=== PATIENT | male | born 1960 | race Caucasian/White ===

== ENCOUNTER 2016-12-07 16:34 | Inpatient (IN) | payer SELFPAY ==
--- NOTE | 2016-12-07 16:36 | EDPHY ---
H & P Time Seen by Provider: 12/07/16 16:35 HPI/ROS: CHIEF COMPLAINT: Chest pain HISTORY OF PRESENT ILLNESS: The patient is referred to the emergency department for evaluation of chest pain. The patient was seen at urgent care and sent here by private vehicle. The patient reports his pain began at 2 o' clock this afternoon while working with a weed whacker. The patient has no prior history of the symptoms. The patient denies significant past medical history. He does not smoke. There is no family history of heart disease. The patient does report he is active without history of exertional chest pain or shortness of breath. The patient currently rates his pain as an 8/10. REVIEW OF SYSTEMS: A comprehensive 10 point review of systems is otherwise negative aside from elements mentioned in the history of present illness. Source: Patient Exam Limitations: No limitations - Medical/Surgical History Hx Asthma: No Hx Chronic Respiratory Disease: No Hx Diabetes: No Hx Cardiac Disease: No Hx Renal Disease: No Hx Cirrhosis: No Hx Alcoholism: No Hx HIV/AIDS: No Hx Splenectomy or Spleen Trauma: No Other PMH: musculoskeletal trauma from mountain biking,hernia. hypothyroid - Social History Smoking Status: Never smoked - Physical Exam Exam: General Appearance: Pallorous, ill-appearing, diaphoretic Eyes: Pupils equal and round no pallor or injection ENT, Mouth: Mucous membranes moist Respiratory: There are no retractions, lungs are clear to auscultation Cardiovascular: Bradycardic Gastrointestinal: Abdomen is soft and nontender, no masses, bowel sounds normal Neurological: A&O, normal motor function, normal sensory exam, normal cranial nerves Skin: Warm and dry, no rashes Musculoskeletal: Neck is supple nontender Extremities: symmetrical, full range of motion Constitutional: Initial Vital Signs Temperature (C) 36.7 C 12/07/16 16:36 Heart Rate 51 L 12/07/16 16:36 Respiratory Rate 18 12/07/16 16:36 Blood Pressure 92/69 L 12/07/16 16:36 O2 Sat (%) 98 12/07/16 16:36 O2 Delivery Mode Nasal Cannula O2 (L/minute) 4 Allergies/Adverse Reactions: erythromycin base Allergy (Intermediate, Verified 12/07/16 19:24) Vomiting Home Medications: Medication Instructions Recorded Levothyroxine [Synthroid 112 mcg 112 mcg PO DAILY06 08/06/14 (*)] Medical Decision Making - Diagnostics EKG Interpretation: EKG: Complete interpretation has been separately recorded in the [facility] archive. Summary impression: Acute inferior myocardial infarction, ST segment elevation noted in the inferior leads with reciprocal changes in the anterior leads. ED Course/Re-evaluation: The patient presented to triage at 4:36 p.m.. He was brought back to room placed on a cardiac catheterization technician were tombstones were noted. A cardiac alert called that 4:41pm. The patient's initial EKG demonstrates an inferior myocardial infarction. The patient was noted to be bradycardic. He received 325 mg of aspirin. The patient received 1 mg of atropine for hypotension with a blood pressure of 70/50. The patient had 2 large-bore IVs established. The patient received 2 L of normal saline for hypotension in the setting of inferior myocardial infarction. I spoke with Dr. Ordonez at 4:45pm he is enroute to the hospital the cardiac catheterization lab was notified. The patient's blood pressure did improve after receiving 2 L of normal saline to 90/60. The patient continued to have 9/ 10 chest pain. He received a total of 6 mg of morphine and 100 mcg of fentanyl throughout his stay in the emergency department. The patient was transported to the cardiac catheterization lab at 5:10 p.m.. Accompanied the patient to the superintendent geophysical laboratory. The patient's care has been transferred to Dr. Ordonez at 5:15 p.m.. Differential Diagnosis: Differential diagnosis considered includes myocardial infarction, cardiogenic shock, arrhythmia Critical Care Time: Critical care time exclusive of procedures and exclusive of the PA's time was 35 minutes, performed by myself, Hugo Hutchinson MD. Patient presents to the ED with an acute inferior myocardial infarction resulting in hypotension and bradycardia. The patient required emergent transfer to the cardiac catheterization lab. - Data Points Laboratory Results: Laboratory Results 12/07/16 16:45 12/07/16 16:45 12/07/16 12/07/16 12/07/16 16:47 16:45 16:45 WBC RBC Hgb POC Hgb 15.3 gm/dL gm/dL (13.7-17.5) Hct POC Hct 45 % % (40-51) MCV MCH MCHC RDW Plt Count MPV Neut % (Auto) Lymph % (Auto) Bertie % (Auto) Eos % (Auto) Baso % (Auto) Nucleat RBC Rel Count Absolute Neuts (auto) Absolute Lymphs (auto) Absolute Monos (auto) Absolute Eos (auto) Absolute Basos (auto) Absolute Nucleated RBC Immature Gran % Immature Gran # PT 13.3 SEC SEC (12.0-15.0) INR 1.02 (0.83-1.16) APTT 24.4 SEC SEC (23.0-38.0) POC Sodium 143 mEq/L mEq/L (134-144) Sodium 139 mEq/L mEq/L (134-144) POC Potassium 3.0 mEq/L L mEq/L (3.3-5.0) Potassium 3.3 mEq/L L mEq/L (3.5-5.2) POC Chloride 104 mEq/L mEq/L (97-110) Chloride 104 mEq/L mEq/L (97-110) Carbon Dioxide 20 mEq/l L mEq/l (22-31) Anion Gap 15 mEq/L mEq/L (8-16) POC BUN 18 mg/dL mg/dL (7-23) BUN 17 mg/dL mg/dL (7-23) Creatinine 0.9 mg/dL mg/dL (0.7-1.3) POC Creatinine 0.9 mg/dL mg/dL (0.7-1.3) Estimated GFR > 60 Glucose 124 mg/dL H mg/dL (70-100) POC Glucose 135 mg/dL H mg/dL (70-100) Calcium 9.6 mg/dL mg/dL (8.5-10.4) Troponin I < 0.012 ng/mL ng/mL (0-0.034) 12/07/16 16:45 WBC 14.51 10^3/uL H 10^3/uL (3.80-9.50) RBC 4.79 10^6/uL 10^6/uL (4.40-6.38) Hgb 15.8 g/dL g/dL (13.7-17.5) POC Hgb Hct 44.7 % % (40.0-51.0) POC Hct MCV 93.3 fL fL (81.5-99.8) MCH 33.0 pg pg (27.9-34.1) MCHC 35.3 g/dL g/dL (32.4-36.7) RDW 11.7 % % (11.5-15.2) Plt Count 196 10^3/uL 10^3/uL (150-400) MPV 9.9 fL fL (8.7-11.7) Neut % (Auto) 76.4 % H % (39.3-74.2) Lymph % (Auto) 14.5 % L % (15.0-45.0) Bertie % (Auto) 7.9 % % (4.5-13.0) Eos % (Auto) 0.2 % L % (0.6-7.6) Baso % (Auto) 0.4 % % (0.3-1.7) Nucleat RBC Rel Count 0.0 % % (0.0-0.2) Absolute Neuts (auto) 11.10 10^3/uL H 10^3/uL (1.70-6.50) Absolute Lymphs (auto) 2.10 10^3/uL 10^3/uL (1.00-3.00) Absolute Monos (auto) 1.14 10^3/uL H 10^3/uL (0.30-0.80) Absolute Eos (auto) 0.03 10^3/uL 10^3/uL (0.03-0.40) Absolute Basos (auto) 0.06 10^3/uL 10^3/uL (0.02-0.10) Absolute Nucleated RBC 0.00 10^3/uL 10^3/uL (0-0.01) Immature Gran % 0.6 % % (0.0-1.1) Immature Gran # 0.08 10^3/uL 10^3/uL (0.00-0.10) PT INR APTT POC Sodium Sodium POC Potassium Potassium POC Chloride Chloride Carbon Dioxide Anion Gap POC BUN BUN Creatinine POC Creatinine Estimated GFR Glucose POC Glucose Calcium Troponin I Medications Given: Discontinued Medications Aspirin (Aspirin) 324 mg PO EDNOW ONE Stop: 12/07/16 16:49 Last Admin: 12/07/16 16:52 Dose: 324 mg Atropine Sulfate (Atropine 1 Mg/10 Ml Syringe) 1 mg IVP EDNOW ONE Stop: 12/07/16 16:57 Last Admin: 12/07/16 16:57 Dose: 1 mg Fentanyl (Sublimaze) 50 mcg IVP EDNOW ONE Stop: 12/07/16 17:05 Last Admin: 12/07/16 17:09 Dose: 50 mcg Fentanyl (Sublimaze) 50 mcg IVP EDNOW ONE Stop: 12/07/16 17:09 Last Admin: 12/07/16 17:09 Dose: 50 mcg Sodium Chloride (Ns) 1,000 mls @ 0 mls/hr IV ONCE ONE PRN Reason: Wide Open Stop: 12/07/16 16:49 Last Admin: 12/07/16 16:52 Dose: 1,000 mls Sodium Chloride (Ns) 1,000 mls @ 0 mls/hr IV ONCE ONE PRN Reason: Wide Open Stop: 12/07/16 16:50 Last Admin: 12/07/16 16:53 Dose: 1,000 mls Morphine Sulfate (Morphine) 4 mg IVP EDNOW ONE Stop: 12/07/16 16:57 Last Admin: 12/07/16 16:57 Dose: 4 mg Morphine Sulfate (Morphine) 2 mg IVP EDNOW ONE Stop: 12/07/16 17:01 Last Admin: 12/07/16 17:09 Dose: 2 mg Prasugrel (Effient) 60 mg PO ONCE ONE Stop: 12/07/16 18:10 Last Admin: 12/07/16 18:52 Dose: Not Given Point of Care Test Results: 12/07/16 16:47 POC Sodium 143 POC Potassium 3.0 L POC Chloride 104 POC BUN 18 POC Creatinine 0.9 POC Glucose 135 H Departure - Departure Disposition: [facility] Acute Clinical Impression: Acute inferior myocardial infarction Condition: Critical
[2016-12-07] MEDS ORDERED: ASPIRIN 81 MG CHEWABLE TAB ONE (16:47)
[2016-12-07] MEDS ORDERED: ASPIRIN 81 MG CHEWABLE TAB PO ONE (16:48)
[2016-12-07] MEDS ORDERED: NS 1,000 ML IV ONE ×2 (16:48→16:49)
[2016-12-07] MEDS ORDERED: ATROPINE SULFATE 1 MG/10 ML SYR IVP ONE (16:56)
[2016-12-07] MEDS ORDERED: fentaNYL 100 MCG/2 ML INJ ONE ×2 (17:03→17:14)
[2016-12-07] MEDS ORDERED: fentaNYL 100 MCG/2 ML INJ IVP ONE ×2 (17:04→17:08)
--- NOTE | 2016-12-07 17:05 | CPEKG ---
Heart Rate: 103 RR Interval: 583 P-R Interval: 168 QRSD Interval: 128 QT Interval: 376 QTC Interval: 492 P [place]: 72 QRS [place]: 108 T Wave [place]: 99 EKG Severity - ABNORMAL ECG - EKG Impression: SINUS TACHYCARDIA EKG Impression: Inferior, posterior ST segment elevation myocardial infarction Electronically Signed By: Hugo Hutchinson 07-Dec-2016 18:08:53
[2016-12-07] MEDS ORDERED: LIDOCAINE 1% 300 MG/30 ML SDV ONE (17:10)
[2016-12-07] MEDS ORDERED: IOPAMIDOL (ISOVUE-370) 150 ML BTL IV ONE ×2 (17:10→17:43)
[2016-12-07 17:14] LABS: % IMMATURE GRANULYOCYTES 0.6 % (0.0-1.1); ABSOLUTE IMMATURE GRANULOCYTES 0.08 10^3/uL (0.00-0.10); ADD DIFF? NO; ADD MORPH? NO; ADD SCAN? NO; ATYPICAL LYMPHOCYTE FLAG 0 (0-99); FRAGMENT RBC FLAG 0 (0-99); HEMATOCRIT 44.7 % (40.0-51.0); HEMOGLOBIN 15.8 g/dL (13.7-17.5); LEFT SHIFT FLG 0 (0-99); LIPEMIA HEMOLYSIS FLAG 90 (0-99); MEAN CELL HEMOGLOBIN CONCENTR. 35.3 g/dL (32.4-36.7); MEAN CELL VOLUME 93.3 fL (81.5-99.8); MEAN PLATELET VOLUME 9.9 fL (8.7-11.7); PLATELET CLUMPS FLAG 0 (0-99); PLATELET COUNT 196 10^3/uL (150-400); RED BLOOD CELL COUNT 4.79 10^6/uL (4.40-6.38); RED CELL DISTRIBUTION WIDTH 11.7 % (11.5-15.2)
[2016-12-07] MEDS ORDERED: MIDAZOLAM 2 MG/2 ML VIAL ONE (17:14)
[2016-12-07 17:20] LABS: ANION GAP 15 mEq/L (8-16); CALCIUM 9.6 mg/dL (8.5-10.4); CARBON DIOXIDE 20 mEq/l (22-31); CHLORIDE 104 mEq/L (97-110); CREATININE 0.9 mg/dL (0.7-1.3); GLOMERULAR FILTRATION RATE > 60; GLUCOSE 124 mg/dL (70-100); POTASSIUM 3.3 mEq/L (3.5-5.2); SODIUM 139 mEq/L (134-144)
[2016-12-07 17:23] LABS: APTT 24.4 SEC (23.0-38.0); INR 1.02 (0.83-1.16); PROTIME(PATIENT) 13.3 SEC (12.0-15.0)
[2016-12-07] MEDS ORDERED: BIVALIRUDIN 250 MG/5 ML VIAL IV ONE (17:24)
[2016-12-07] MEDS ORDERED: ABCIXIMAB 10 MG/5 ML VIAL ONE ×3 (17:29→17:37)
[2016-12-07 17:32] LABS: TROPONIN I < 0.012 ng/mL (0-0.034)
[2016-12-07] MEDS ORDERED: PRASUGREL HCL 10 MG TAB ONE (18:02)
[2016-12-07] MEDS ORDERED: OXYCODONE/APAP 5/325 TAB PO PRN (18:09)
[2016-12-07] MEDS ORDERED: ONDANSETRON 4 MG/2 ML VIAL IVP PRN (18:09)
[2016-12-07] MEDS ORDERED: NITROGLYCERIN 0.4 MG BTL SL PRN (18:09)
[2016-12-07] MEDS ORDERED: ACETAMINOPHEN 325 MG TAB PO PRN (18:09)
[2016-12-07] MEDS ORDERED: ONDANSETRON DISINTEGRATING 4 MG TAB PO PRN (18:09)
[2016-12-07] MEDS ORDERED: ATROPINE SULFATE 1 MG/10 ML SYR IVP PRN (18:09)
[2016-12-07] MEDS ORDERED: TEMAZEPAM 15 MG CAP PO PRN (18:09)
[2016-12-07] MEDS ORDERED: LORazepam 2 MG/ML INJ IVP PRN (18:09)
[2016-12-07] MEDS ORDERED: PRASUGREL HCL 10 MG TAB PO ONE (18:09)
[2016-12-07] MEDS ORDERED: NS 1,000 ML IV SCH (18:15)
[2016-12-07] MEDS ORDERED: ABCIXIMAB IV ONE (18:18)
[2016-12-07] MEDS ORDERED: NS IV ONE (18:18)
--- NOTE | 2016-12-07 18:37 | PDDXCAT ---
Diagnostic Cath Note - . Date: 12/07/16 Wood Casket Maker: Mery Indication: other (ACUTE INFERIOR AND TRUE POSTERIOR MYOCARDIAL INFARCTION) - Procedure Access: right groin Procedure: left heart catheterization, coronary angiography, left ventriculogram - Materials Left Heart Cath materials: standard multipack (JL4, JR4, pigtail) - Findings-Left Heart Catheterization LM: 4MM IN SIZE BIFURCATES INTO LAD AND CIRC SYSTEM LAD: 3.75 MM IN SIZE WITH FLAVIO III FLOW TO DISTAL VESSEL SO SIGNIFICANT DISEASE LCX: SMALL AND SHORT VESSEL WITH FLAVIO III FLOW NO SIGNIFICANT DISEASE RCA: 6 MM VESSEL PROXIMALLY WITH 100% PROXIMAL OCCLUSION FLAVIO 0 FLOW EDP: 27MMHG LVEF: 40% Closure method: Angioseal Assessment: ACUTE INFERIOR AND TRUE POSTERIOR OK: A 6 tajik system with JR4 guiding catheter, 0.014 prowater J was advanced across the lesion in the proximal RCA. The vessel was ballooned open with a 2.0 by 15mm Emerge balloon. The door to balloon time was 54 minutes. It was clear that there was a very large thrombud burden. Thrombectomy was performed with a Pronto catheter without success. Intracoronary Reopro weight based bolus was administerd intracornary and an IV drip started at weight based value of 15ml/hr. Angiomax bolus and infusion was started after the occluded artery was identified. ASA was administered orally. The vessel was reopened with evidence of FLAVIO II flow. Given the very large size of the vessel we used bare metal stents Rebel 4.5/28 and overlapping 4.5 X 24 at max pressure of 16 PRANEETH with excellent and FLAVIO III flow with Grade IV blush score to the inferior wall. A small clot was noted in the plv branch and therefore we decided to complete the IV Reopro infusion over the next 12 hours. The patient underwent sucessful angioseal arteriortomy repair, and was taken to the ICU in serious but stable condition/ a stat post operative EKG and troponins will be trended. A complete echo will be ordered for AM completion. All NITROGLYCERIN SHOULD BE HELD TO AVOID HYPOTENSION. I have ordered JEFF and Beta Blockers but they should be held for bradycardia or blood pressure less than 100 mmHg systolic. Plan: As above Intervention: As detailed above. Successful acute infract angioplasty, thrombectomy, IC thrombolysis and Stent implantation without immediate complication. Patient Problems: Problems Problem Status Onset Acute inferior myocardial infarction Acute
--- NOTE | 2016-12-07 19:12 | GHP ---
[f rep st] HISTORY AND PHYSICAL DATE OF ADMISSION: 12/07/2016 CHIEF COMPLAINT: "Doctor, I'm having chest pain." HISTORY OF PRESENT ILLNESS: The patient is a [place] resident who was using a weed whacker to cut down some weeds earlier today and developed chest discomfort around 2:30 this afternoon. He was dr ruiz to the emergency department by his friend and triaged in the hospital at 4:36 this afternoon. PAST MEDICAL HISTORY: Hypothyroidism. SOCIAL HISTORY: He does not smoke, abuse alcohol or illicit drugs. FAMILY HISTORY: There is no family history of heart disease. He does not have diabetes or hypertension. The patient is active without a history of exertional chest discomfort until this afternoon. The pa shirlene presents with acute and active chest pain, 8 to 9/10 in severity, with associated nausea witho ut vomiting. REVIEW OF SYSTEMS: Negative per the emergency department physician's review, Dr. Farhan Winston. He vidales s not have a history of asthma, COPD, diabetes, renal disease, cirrhosis of the liver, or alcoholism . He has never smoked. PHYSICAL EXAMINATION: GENERAL: On physical exam, the patient is in cardiogenic shock. He is hypot ensive, ill-appearing and diaphoretic. VITAL SIGNS: His blood pressure was noted to be initially 9 2/69 with a heart rate of 50. He subsequently developed hypotension with a blood pressure of 70 and was treated with a mg of atropine and 3 L of fluid in the emergency department. I was called to se e the patient, and he was taken emergently to the catheterization laboratory, attended by Dr. Farhan valerio of the emergency department staff, along with the lab animal technician staff. NECK: Reveals no JVD. HEAR T: Reveals normal S1 and S2 without a murmur or rub. LUNGS: Clear to auscultation bilaterally wit hout wheezes, rales or rhonchi. ABDOMEN: Soft. Positive bowel sounds. Nondistended and nontender . EXTREMITIES: Warm, dry well perfused. SKIN: Cold and clammy, and he has weak and decreased fem oral pulses bilaterally. LABORATORY DATA: Laboratory studies revealed a white count of 14.5 with a left shift of 76.4, lymph ocytes 14.5, hemoglobin and hematocrit of 15.8 and 44.7, with a platelet count of 196. His coags ar e normal with a PT/INR of 13.3 and 1.02. His chemistries reveal a point of care sodium of 143, pota ssium 3.0. Repeated and found to be 3.3, chloride 104, carbon dioxide 20, anion gap 15, glucose 124 , is a nonfasting sample with an estimated GFR of greater than 60. His troponin I on presentation i s less than 0.012 ng/mL, which is a normal value. The heart rate was sinus tachycardia at a rate of [address]-segment elevation in III, III and aVF. Maximal ST-elevation was 5 mm and 3 and 6 mm in aVF. Again, with reciprocal change in V1, V2 and V 3. We do not have to repeat that. These findings are consistent with inferior and true posterior m yocardial infarction and an ST-elevation infarction in progress. IMPRESSION: Acute inferior myocardial infarction complicated by cardiogenic shock and hypotension, as well as tachycardia post atropine delivered in the emergency department. The patient will be zeinab en emergently to the cardiac catheterization laboratory for definitive cardiac catheterization and a cute infarct angioplasty and stent implantation. Copy requested to: Primary Care Physician /[id number]/MODL
[2016-12-07] MEDS ORDERED: ATROPINE SULFATE 1 MG/10 ML SYR ONE (19:19)
[2016-12-07] MEDS ORDERED: DOPamine/DEXTROSE/250 ML BAG IV ONE (19:20)
[2016-12-07 19:31] LABS: CK-MB INTERPRETATION POSITIVE (NEGATIVE)
[2016-12-08 01:39] LABS: CK-MB INTERPRETATION POSITIVE (NEGATIVE)
[2016-12-08] MEDS: LEVOTHYROXINE 112 MCG TAB PO SCH (05:10)
[2016-12-08 05:53] LABS: ALBUMIN 2.5 g/dL (3.5-5.0); ANION GAP 9 mEq/L (8-16); ASPARTATE AMINOTRANSFERASE 171 IU/L (17-59); BILIRUBIN,TOTAL 0.7 mg/dL (0.1-1.4); CARBON DIOXIDE 20 mEq/l (22-31); CHLORIDE 110 mEq/L (97-110); CREATININE 0.7 mg/dL (0.7-1.3); GLOMERULAR FILTRATION RATE > 60; GLUCOSE 100 mg/dL (70-100); LACTATE DEHYDROGENASE 844 IU/L (313-618); MAGNESIUM 1.6 mg/dL (1.6-2.3); POTASSIUM 3.4 mEq/L (3.5-5.2); SODIUM 139 mEq/L (134-144)
[2016-12-08 06:19] LABS: CK-MB INTERPRETATION POSITIVE (NEGATIVE)
[2016-12-08 06:22] LABS: % IMMATURE GRANULYOCYTES 0.3 % (0.0-1.1); ABSOLUTE IMMATURE GRANULOCYTES 0.03 10^3/uL (0.00-0.10); ADD DIFF? NO; ADD MORPH? NO; ADD SCAN? NO; ATYPICAL LYMPHOCYTE FLAG 0 (0-99); FRAGMENT RBC FLAG 0 (0-99); HEMATOCRIT 38.3 % (40.0-51.0); HEMOGLOBIN 13.2 g/dL (13.7-17.5); LEFT SHIFT FLG 0 (0-99); LIPEMIA HEMOLYSIS FLAG 90 (0-99); MEAN CELL HEMOGLOBIN 32.8 pg (27.9-34.1); MEAN CELL HEMOGLOBIN CONCENTR. 34.5 g/dL (32.4-36.7); MEAN CELL VOLUME 95.3 fL (81.5-99.8); MEAN PLATELET VOLUME 10.4 fL (8.7-11.7); PLATELET CLUMPS FLAG 0 (0-99); PLATELET COUNT 123 10^3/uL (150-400); RED BLOOD CELL COUNT 4.02 10^6/uL (4.40-6.38); RED CELL DISTRIBUTION WIDTH 12.1 % (11.5-15.2)
--- NOTE | 2016-12-08 08:46 | CPEKG ---
Heart Rate: 57 RR Interval: 1053 P-R Interval: 152 QRSD Interval: 102 QT Interval: 460 QTC Interval: 448 P [place]: 69 QRS [place]: -80 T Wave [place]: 67 EKG Severity - OTHERWISE NORMAL ECG - EKG Impression: SINUS RHYTHM EKG Impression: LEFT AXIS DEVIATION EKG Impression: LOW VOLTAGE IN FRONTAL LEADS Electronically Signed By: Sivakumar Antonio 08-Dec-2016 16:43:03
[2016-12-08] MEDS ORDERED: LISINOPRIL 2.5 MG TAB PO SCH (09:00)
[2016-12-08] MEDS ORDERED: PROTOCOL MAGNESIUM 1 DOSE IV PRN (09:19)
[2016-12-08] MEDS ORDERED: PROTOCOL POTASSIUM 1 DOSE MISC PRN (09:19)
[2016-12-08] MEDS: ASPIRIN EC 325 MG TAB PO SCH (09:25)
[2016-12-08] MEDS: PRASUGREL HCL 10 MG TAB PO SCH (09:25)
[2016-12-08] MEDS: ATORVASTATIN CALCIUM 40 MG TAB PO SCH (09:26)
[2016-12-08] MEDS ORDERED: POTASSIUM CL 10 MEQ TAB PO ONE ×2 (09:34→21:20)
[2016-12-08] MEDS ORDERED: MAGNESIUM SULF 1 GM/DEXTROSE 100 ML IV ONE (09:35)
--- NOTE | 2016-12-08 09:54 | PDCARPN ---
Cardiology Progress Note Assessment/Plan: Assessment/plan: 56-year-old male with no known cardiovascular risk factors. He presented to the emergency department on December [address]- elevation myocardial infarction. He was hypertensive upon admission. He was taken to the shellfish processing laborer emergently by Dr. Ordonez. RCA was 100% occluded with thrombus. There is a large thrombus burden and thrombectomy was unsuccessful. He received intra coronary a pro, 12 hours of IV ReoPro, and 2 bare metal stents , overlapping, were implanted in the proximal right coronary artery. Left ventricular ejection fraction at the time of cardiac catheterization was 40 %; left ventricular end-diastolic pressure was 27 mm of mercury. 1. Inferior ST-elevation LA. Peak troponin thus far has been 44. Cycle troponins in tell peak. He does not appear to be in cardiogenic shock. His blood pressure is low, but he reports that already runs low. No balloon pump was necessary. Will attempt to initiate low-dose Coreg. Ideally he would also be on an LARON inhibitor, but this is on hold due to his relative hypotension. The importance of uninterrupted dual antiplatelet therapy was reviewed with the patient. He would be a candidate for at least 1 year of dual antiplatelet therapy given the large size of his right coronary artery and large thrombus burden. Consider indefinite dual antiplatelet therapy. Bleeding risks were reviewed with the patient. Unclear etiology of his LA with high thrombus burden. No traditional cardiac risk factors. Check lipid profile, hemoglobin A1c, homocystine, and lipoprotein (a) 2. Cardiomyopathy: Ejection fraction last evening was 40%. Will review echocardiogram from this morning. Coreg as tolerated. Laron inhibitor if tolerated. No diuretics necessary at this time. If his ejection fraction remains above 40%, he would not be a candidate for Life Vest. 3. Hypothyroidism: Check TSH. The patient reports that he has had stable dosing of his thyroid supplementation for several years. 4. Hypokalemia: Unclear etiology. Replete potassium and magnesium per protocol. Follow closely. The patient will require another day in the ICU given the acute nature of his cardiac event, likely transfer to the floor tomorrow, and likely discharge home on December 10. 12/08/16 09:58 Subjective: Samuel had a little bit of indigestion type discomfort earlier this morning. No dyspnea. Mild lightheadedness. We reviewed the fact that he has not had symptoms similar to this previously, other than the day prior to admission when he had a little bit of dyspnea when climbing stairs. The patient denies illicit drugs or tobacco. He again denies a history of known hypertension, diabetes, dyslipidemia, or significant family history of premature coronary disease. His grandmother did have a cardiac event. Time Spent With Patient: 25 minutes Objective: Vital Signs (8 Hrs) Temp Pulse Resp BP Pulse Ox 12/08/16 08:00 36.8 C 64 17 87/50 L 97 12/08/16 06:15 80 18 86/50 L 95 12/08/16 06:00 63 16 70/40 L 97 12/08/16 04:00 36.7 C 61 13 91/53 L 98 12/08/16 02:00 59 L 103/65 Intake/Output (24 Hrs) 12/07/16 12/08/16 12/09/16 05:59 05:59 05:59 Intake Total 3121 Output Total 801 Balance 2320 Intake: Oral (ml) 950 IV Infused (ml) 2171 Abciximab 9 mg In Ns 250 171 ml @ 15 mls/hr IV ONCE ONE Rx#:[id number] Output: Urine (ml) 801 Toilet 1 Urinal 800 Other: Weight 68.039 kg Intake Quantity Yes Sufficient Output Comment Urinal Straigh Cath Bladder Scan Volume (ml) Urinal 750 No acute distress. Sitting up in chair. JVP less than 10. Carotids equal and 2+ bilaterally without bruit Regular rate and rhythm without murmur rub or gallop. Lungs clear to auscultation bilaterally without wheezes rhonchi or rales Abdomen soft nontender nondistended without bruits masses or hepatosplenomegaly. Extremities warm well perfused without cyanosis clubbing or edema. 2+ distal pulses both feet. Femoral arteriotomy site: Dressing clean dry and intact. Minimal tenderness. No bruit. No hematoma or ecchymoses. Neuro alert and oriented x3 without gross focal neurologic deficits Catheterization films reviewed: LAD and left circumflex system appear normal. The large right coronary artery is 100% proximally occluded with a large thrombus burden. Ejection fraction 40% with inferior hypokinesis Result Diagrams: 12/08/16 06:00 12/08/16 05:00 Cardiac Labs: Cardiac Lab Results (72 Hrs) 12/08/16 12/08/16 12/07/16 05:00 00:00 18:45 CK-MB (CK-2) Fraction 106.00 H 116.00 H 27.80 H Troponin I 44.600 H 40.000 H 5.260 H EKG: EKG x2 reviewed. Admission EKG to the ER shows sinus tachycardia with inferior ST elevation and reciprocal anterior depression. EKG this morning shows inferior Q-waves with resolution of ST abnormalities Telemetry: Sinus rhythm ICD10 Worksheet Patient Problems: Problems Problem Status Onset Acute inferior myocardial infarction Acute
--- NOTE | 2016-12-08 11:28 | ECHO ---
[id number] + + [address] : : [place] [address] : : [phone] + + Adult Echocardiographic Report + -------+ :Name: GENE STEVE Date: 12/08/2016 08:22 AM BP: 89/57 mmHg : : Hospital Admission Number: [id number] [place] on: 253: :: 1960 Gender: Male Height: 73 in : :Age: 56 yrs Race: WH Weight: 150 lb : :Reason For Study: Eval LV Fx : : BSA: 1.9 meter s2 : :History: Acute Stemi, Post NM : + -------+ MMode/2D Measurements \T\ Calculations IVSd: 1.1 cm LVIDd: 4.6 cm FS: 22.3 % Ao root diam: LVPWd: 1.1 cm LVIDs: 3.6 cm EDV(Teich): 3.4 cm 96.0 ml ACS: 2.1 cm ESV(Teich): 52.8 ml EF(Teich): 45.0 % LVLd ap4: 8.0 cm SV(MOD-sp4): EDV(MOD-sp4): 45.0 ml 93.0 ml LVLs ap4: 7.0 cm ESV(MOD-sp4): 48.0 ml EF(MOD-sp4): 48.4 % Normal Measurement Values: + + :LVIDd (3.5-5.7cm) IVSd (0.6-1.1cm) LVPWd (0.6-1.1cm) Aortic Root (2.0-3.7cm)Left Atrium (1.5-4.0cm): :LV Vol(d) (76-115ml) LV Vol(s) (29-48ml) Ejec Fraction (50-65%)PV Rigo (0.6- 1.2m/s) TV Rigo (0.4-1.0m/s) : :MV E Rigo (0.8-1.0m/s)MV A Rigo (0.3-1.0m/s)LVOT Rigo (0.7-1.2m/s) Asc Ao Rigo ( 0.9-1.8m/s) : + + Doppler Measurements \T\ Calculations MV E max rigo: Ao V2 max: LV V1 max: PA V2 max: 38.5 cm/sec 114.0 cm/sec 89.8 cm/sec 86.9 cm/sec MV A max rigo: Ao max P.2 mmHgLV V1 max PG: PA max P.3 cm/sec 3.2 mmHg 3.0 mmHg MV E/A: 0.68 TR max rigo: 206.3 cm/sec TR max P.0 mmHg RAP systole: 5.0 mmHg RVSP(TR): 22.0 mmHg Left Ventricle The left ventricle is normal in size. There is normal left ventricular wall thickness. Left ventricular systolic function is mildly reduced. Ejection Fraction = 45%. There is basilar to mid inferolateral hypokinesis. There is inferior hypokinesis. Right Ventricle The right ventricle is normal in size and function. Atria The left atrial size is normal. Right atrial size is normal. Mitral Valve The mitral valve is normal in structure and function. There is no evidence of mitral valve prolapse. There is no mitral valve stenosis. There is no mitral regurgitation noted. Tricuspid Valve Normal tricuspid valve. There is trace tricuspid regurgitation. Aortic Valve The aortic valve is normal in structure and function. The aortic valve is trileaflet. There is no aortic stenosis. There is no aortic insufficiency. Pulmonic Valve The pulmonic valve is normal in structure and function. There is no pulmonic valvular regurgitation. Great Vessels The aortic root is normal size. Pericardium/Pleural There is no pericardial effusion. Conclusion A complete two-dimensional transthoracic echocardiogram was performed (2D, M-mode, Doppler and color flow Doppler). Normal LV size Left ventricular systolic function is mildly reduced. Ejection Fraction = 45%. There is basilar to mid inferolateral hypokinesis. There is inferior hypokinesis. The right ventricle is normal in size and function. The left atrial size is normal. The mitral valve is normal in structure and function. There is no mitral regurgitation noted. Normal tricuspid valve There is trace tricuspid regurgitation. The aortic valve is normal in structure and function. The aortic valve is trileaflet. The pulmonic valve is normal in structure and function. There is no pulmonic valvular regurgitation. There is no pericardial effusion. No prior echo Final Reading Physician: Dr Mayra Llanes electronically signed on 12/08/2016 11:27 AM Ordering Physician: Veto Ordonez Performed By: Tony Cardona, [employer]
[2016-12-08] MEDS ORDERED: [UNRECOGNIZED DRUG - OTHER] PO PRN (13:00)
--- NOTE | 2016-12-08 13:17 | CPEKG ---
Heart Rate: 52 RR Interval: 1154 P-R Interval: 151 QRSD Interval: 112 QT Interval: 448 QTC Interval: 417 P [place]: 5 QRS [place]: 106 T Wave [place]: 97 EKG Severity - ABNORMAL ECG - EKG Impression: SINUS RHYTHM EKG Impression: INFEROPOSTERIOR INFARCT, ACUTE Electronically Signed For: Hugo Hutchinson 08-Dec-2016 13:19:25
[2016-12-08 13:27] LABS: CHOLESTEROL 128 mg/dL (140-220); CHOLESTEROL/HDL RATIO 2.98 RATIO (1.00-4.97); HIGH DENSITY LIPOPROTEIN 43 mg/dL (40-65); LDL/HDL RATIO 1.63 RATIO (1.00-3.64); LOW DENSITY LIPOPROTEIN 70 mg/dL (80-100); NON-HIGH DENSITY LIPOPROTEIN 85 mg/dL (90-129); TRIGLYCERIDE 76 mg/dL (40-150); VERY LOW DENSITY LIPOPROTEINS 15 mg/dL (8-25)
[2016-12-08 14:12] LABS: HEMOGLOBIN A1C 5.1 % (4.0-6.0)
[2016-12-08] MEDS: CARVEDILOL 3.125 MG TAB PO SCH ×2 (15:09)
[2016-12-08 15:34] LABS: CK-MB INTERPRETATION POSITIVE (NEGATIVE)
[2016-12-08 17:28] LABS: PHENCYCLIDINE URINE BCH < 6 ng/ml (NEGATIVE); PHENCYCLIDINE URINE BCH NEGATIVE (NEGATIVE); TETRAHYDROCANNABINOL URINE < 5 ng/mL (NEGATIVE); TETRAHYDROCANNABINOL URINE NEGATIVE (NEGATIVE)
--- NOTE | 2016-12-08 18:00 | GCON ---
[f rep st] CONSULTATION CRITICAL CARE CONSULT DATE OF CONSULTATION: 12/08/2016 HISTORY OF PRESENT ILLNESS: This patient is a 56-year-old male without any known cardiovascular ris k factors who presented on December 07 with chest pain and found to have acute inferior ST-elevation m yocardial infarction. He was taken to the cardiac catheterization lab where his right coronary lon ry was found to be 100% occluded. He underwent thrombectomy and 2 bare metal stents were placed and received anti-platelet therapy. His ejection fraction at the time of cath was 40% and he was broug ht to the intensive care unit, but he did not require any mechanical ventilation. His blood pressur e and heart rate remained on the low side for most of the evening, but by morning, is improved. He said that he is a fairly active cyclist and runner and keeps a heart rate in the 50s but his blood p ressure was usually not quite as low as what we were recording. He did get IV fluids but no major i ntervention was required for his cardiogenic shock, and by mid morning had improved. Currently says that he is having no chest pain, no shortness of breath, no cough or sputum production. Otherwise feels fairly well. PAST MEDICAL HISTORY: Includes only hypothyroidism. SOCIAL HISTORY: He is a nonsmoker. No alcohol or recreational drugs. FAMILY HISTORY: He denies any cardiac history or any other cardiac risk factors. CURRENT MEDICATIONS: Include Tylenol, aspirin, Lipitor, Synthroid, Coreg, lisinopril, nitroglycerin , Zofran, Percocet, Effient, Restoril p.r.n. PHYSICAL EXAM: VITAL SIGNS: He was afebrile. Heart rate was 50, blood pressure 104/62, respiratio ns 15, oxygen saturation 97% on room air. GENERAL: He was awake and alert, in no apparent distress and able to speak in full sentences without using accessory muscles for breathing. Pupils were equ ally round and reactive to light, nonicteric and noninjected. Mucous membranes were moist without e rythema or exudate. NECK: Supple without adenopathy or jugular vein distention. LUNGS: Breath so unds were clear to auscultation bilaterally without wheezes, rubs or rales. HEART: Regular rate an d rhythm without obvious murmurs, rubs, gallops. ABDOMEN: Soft, nontender, nondistended without he patosplenomegaly. EXTREMITIES: Showed no clubbing, cyanosis, or edema. His insertion site was raquel an and dry without evidence of bleeding or large hematoma. NEUROLOGICAL: Nonfocal. OBJECTIVE DATA: Includes a white count today of 9.1, hematocrit 38.7, platelets of 123. Basic meta bolic panel was essentially normal save for a potassium of about 3.4, bicarb of 20. Troponin peak w as 52.9, now down to 51.3. Liver function tests were mildly elevated with an AST of 171. A BNP was 546. ASSESSMENT AND PLAN: 1. Acute inferior myocardial infarction without any obvious risk factors. I did not see a tox scre en, which I would recommend at this time, looking for specifically cocaine which can cause early dis ease in the absence of other risk factors. In any case, he is being managed primarily by Cardiology . He started Coreg, seems to be managing this reasonably well. His heart rate is already in the 50 s and we will have to watch this closely. We will follow up on his lipid profile. 2. Hypotension. This is likely due to cardiogenic shock in the setting of acute myocardial infarct ion. Seems to be improving without much intervention other than IV fluids at this point. There hav e been no pressors required but dopamine could potentially be needed if it gets any worse than it is now. Otherwise, he is really quite stable. /[id number]/MODL
[2016-12-08 19:05] LABS: POTASSIUM 3.9 mEq/L (3.5-5.2)
[2016-12-09] MEDS: LEVOTHYROXINE 112 MCG TAB PO SCH (05:42)
[2016-12-09 06:00] LABS: HEMATOCRIT 37.7 % (40.0-51.0); MEAN CELL HEMOGLOBIN 33.2 pg (27.9-34.1); MEAN CELL HEMOGLOBIN CONCENTR. 34.5 g/dL (32.4-36.7); MEAN CELL VOLUME 96.4 fL (81.5-99.8); RED BLOOD CELL COUNT 3.91 10^6/uL (4.40-6.38); RED CELL DISTRIBUTION WIDTH 12.3 % (11.5-15.2)
[2016-12-09 06:07] LABS: ANION GAP 4 mEq/L (8-16); CALCIUM 8.7 mg/dL (8.5-10.4); CARBON DIOXIDE 26 mEq/l (22-31); CHLORIDE 107 mEq/L (97-110); CREATININE 0.9 mg/dL (0.7-1.3); GLOMERULAR FILTRATION RATE > 60; GLUCOSE 82 mg/dL (70-100); MAGNESIUM 2.2 mg/dL (1.6-2.3); POTASSIUM 4.2 mEq/L (3.5-5.2); SODIUM 137 mEq/L (134-144)
[2016-12-09] MEDS: CARVEDILOL 3.125 MG TAB PO SCH (07:50)
[2016-12-09] MEDS: ATORVASTATIN CALCIUM 40 MG TAB PO SCH (07:52)
[2016-12-09] MEDS: PRASUGREL HCL 10 MG TAB PO SCH (07:53)
[2016-12-09] MEDS: ASPIRIN EC 325 MG TAB PO SCH (07:53)
--- NOTE | 2016-12-09 09:38 | CPEKG ---
Heart Rate: 56 RR Interval: 1071 P-R Interval: 164 QRSD Interval: 100 QT Interval: 440 QTC Interval: 425 P Homeworth: 66 QRS Homeworth: -59 T Wave Homeworth: -75 EKG Severity - ABNORMAL ECG - EKG Impression: SINUS RHYTHM EKG Impression: LAD, CONSIDER LEFT ANTERIOR FASCICULAR BLOCK EKG Impression: LOW VOLTAGE IN FRONTAL LEADS EKG Impression: ABNORMAL T, CONSIDER ISCHEMIA, INFERIOR LEADS EKG Impression: T WAVE INVERSIONS TO THE INFERIOR LEADS ARE NEW IN COMPARISON TO PRIOR ECG Electronically Signed By: Sivakumar Antonio 09-Dec-2016 13:10:35
--- NOTE | 2016-12-09 11:54 | PDCARPN ---
Cardiology Progress Note Assessment/Plan: Assessment/plan: 56-year-old male with no known cardiovascular risk factors other than family hx MA. He presented to the emergency department on December [address]-elevation myocardial infarction. He was hypotensive upon admission. He was taken to the pipelines laborer emergently by Dr. Ordonez. RCA was 100% occluded with thrombus. There was a large thrombus burden and thrombectomy was unsuccessful. He received intra coronary Reopro, 12 hours of IV ReoPro, and 2 bare metal stents, overlapping, were implanted in the proximal right coronary artery. Left ventricular ejection fraction at the time of cardiac catheterization was 40 %; left ventricular end-diastolic pressure was 27 mm of mercury. 1. Inferior ST-elevation MA. Peak troponin 52. He does not appear to be in cardiogenic shock. His blood pressure is low, but he reports that runs low in the outpatient setting. Switch from coreg to toprol as the latter may have less BP effect. Ideally he would also be on an LARON inhibitor, but this is on hold due to his relative hypotension. The importance of uninterrupted dual antiplatelet therapy was reviewed with the patient. He would be a candidate for at least 1 year of dual antiplatelet therapy given the large size of his right coronary artery and large thrombus burden. Consider indefinite dual antiplatelet therapy. Bleeding risks were reviewed with the patient. Unclear etiology of his MA with high thrombus burden. LDL 70, hgA1C normal, homocystine normal, and lipoprotein (a) is pending. 2. Cardiomyopathy: Ejection fraction was 40%. Toprol. Laron inhibitor if tolerated. No diuretics necessary at this time. Not a candidate for Life Vest given LVEF 40%. 3. Single run of nonsustained VT: Toprol 3. Hypothyroidism: normal TSH 4. Hypokalemia: Unclear etiology. resolved Transfer to PCU today, likely d/c tomorrow 12/09/16 11:58 Subjective: No CP or SOB. [place] dizzy after coreg yesterday Reviewed/Discussed With: multidisciplinary team Objective: Vital Signs (8 Hrs) Temp Pulse Resp BP Pulse Ox 12/09/16 10:00 66 17 110/62 97 12/09/16 07:46 72 17 96/52 L 97 12/09/16 06:00 37.3 C 64 19 105/66 97 12/09/16 04:00 55 L 18 88/56 L Intake/Output (24 Hrs) 08/14/17 08/15/17 08/16/17 05:59 05:59 05:59 Intake Total 3121 1150 Output Total 801 Balance 2320 1150 Intake: Oral (ml) 950 1050 IV Intake (ml) 100 IV Infused (ml) 2171 Abciximab 9 mg In Ns 250 171 ml @ 15 mls/hr IV ONCE ONE Rx#:[id number] Output: Urine (ml) 801 Toilet 1 Urinal 800 Other: Weight 68.039 kg Intake Quantity Yes Sufficient Output Comment Urinal Straigh Cath Number of Voids Toilet 3 Bladder Scan Volume (ml) Urinal 750 NAD JVP <10 RRR no m/r/g LUngs CTAB No edema Right groin: ecchymoses, no hematoma Result Diagrams: 12/09/16 05:45 12/09/16 05:45 Cardiac Labs: Cardiac Lab Results (72 Hrs) 12/08/16 12/08/16 12/08/16 18:25 12:50 12:50 CK-MB (CK-2) Fraction 103.00 H Troponin I 37.600 H 51.300 H 52.900 H 12/08/16 12/08/16 12/07/16 05:00 00:00 18:45 CK-MB (CK-2) Fraction 106.00 H 116.00 H 27.80 H Troponin I 44.600 H 40.000 H 5.260 H Telemetry: one 5 beat run of VT Echocardiogram: Reviewed yesterday. LVEF 40%. Inf and inflat HK ICD10 Worksheet Patient Problems: Problems Problem Status Onset Acute inferior myocardial infarction Acute
[2016-12-09] MEDS: METOPROLOL SUCCINATE XR 25 MG TAB PO SCH (12:33)
--- NOTE | 2016-12-09 15:01 | PDINTPN ---
Assembler Adjuster Progress Note Assessment/Plan: Assessment/plan: 56 M admitted with acute ND complicated by post cath hypotension. * AMI- no clear risk factors. Non smoker, no FH, no HTN, DM, etc. /sp stents and stable * hypotension- resolved with IVF. No evidence of sepsis * Objective: Vital Signs Temp Pulse Resp BP Pulse Ox 36.9 C 70 18 108/69 97 12/09/16 14:00 12/09/16 14:00 12/09/16 14:00 12/09/16 14:00 12/09/16 14:00 Laboratory Results 12/09/16 05:45 12/09/16 05:45 12/08/16 12/09/16 12/10/16 05:59 05:59 05:59 Intake Total 3121 1150 Output Total 801 Balance 2320 1150 PT 13.3 SEC (12.0-15.0) 12/07/16 16:45 INR 1.02 (0.83-1.16) 12/07/16 16:45 Physical Exam - Physical Exam General Appearance: WD/WN, alert, no apparent distress EENT: PERRL/EOMI Neck: non-tender, supple Respiratory: lungs clear, normal breath sounds, No respiratory distress Cardiac/Chest: normal peripheral pulses, regular rate, rhythm, No edema Abdomen: normal bowel sounds, non-tender, soft, other (no hematoma) Skin: normal color, warm/dry Lymphatic: no adenopathy Extremities: normal range of motion, No pedal edema Neuro/Psych: no motor/sensory deficits, alert, normal mood/affect, oriented x 3 ICD10 Worksheet Patient Problems: Problems Problem Status Onset Acute inferior myocardial infarction Acute
[2016-12-09 20:21] LABS: POTASSIUM 3.6 mEq/L (3.5-5.2)
[2016-12-09] MEDS ORDERED: POTASSIUM CL 10 MEQ TAB PO ONE (20:22)
[2016-12-10 03:49] VITALS: TEMP 99
[2016-12-10 05:01] LABS: HEMATOCRIT 38.7 % (40.0-51.0); HEMOGLOBIN 13.5 g/dL (13.7-17.5); MEAN CELL HEMOGLOBIN CONCENTR. 34.9 g/dL (32.4-36.7); MEAN CELL VOLUME 94.6 fL (81.5-99.8); RED BLOOD CELL COUNT 4.09 10^6/uL (4.40-6.38); RED CELL DISTRIBUTION WIDTH 11.8 % (11.5-15.2)
[2016-12-10 06:07] LABS: POTASSIUM 3.9 mEq/L (3.5-5.2)
[2016-12-10] MEDS: LEVOTHYROXINE 112 MCG TAB PO SCH (06:24)
[2016-12-10] MEDS ORDERED: POTASSIUM CL 10 MEQ TAB PO ONE (07:25)
[2016-12-10] MEDS: METOPROLOL SUCCINATE XR 25 MG TAB PO SCH (08:00)
[2016-12-10] MEDS: PRASUGREL HCL 10 MG TAB PO SCH (08:01)
[2016-12-10] MEDS: ASPIRIN EC 325 MG TAB PO SCH (08:02)
[2016-12-10] MEDS: ATORVASTATIN CALCIUM 40 MG TAB PO SCH (08:02)
--- NOTE | 2016-12-10 11:21 | GDS ---
[f rep st] DISCHARGE SUMMARY ADMISSION DIAGNOSES: 1. Acute inferior ST-elevation myocardial infarction. 2. Hypothyroidism. DISCHARGE DIAGNOSES: 1. Acute inferior ST-elevation myocardial infarction treated with direct percutaneous intervention to the right coronary artery. 2. Cardiomyopathy ejection fraction 40%. 3. Nonsustained ventricular tachycardia. 4. Hypothyroidism. 5. Anemia and mild thrombocytopenia. PROCEDURES DURING HOSPITALIZATION: 1. Cardiac catheterization: Please see Dr. Ordonez's dictated procedure note. In summary, the brianne ent's left coronary system was normal. The RCA was a very large, 6 mm vessel, with 100% proximal oc clusion. This was a large thrombus burden. Thrombectomy was performed with a Pronto catheter but t his was not successful. The patient was given intracoronary ReoPro as well as a 12-hour ReoPro infu elpidio. His right coronary artery occlusion was treated with 2 overlapping bare metal stents, Rebel 4 .5 x 28 mm and 4.5 x 24 mm. He was transferred to the ICU. He did not require balloon pump support . He did not require intubation. He remained hemodynamically stable. 2. Echocardiogram on 12/08/2016: Normal LV size. Left ventricular ejection fraction is mildly red uced at 40%. Mid basal to mid inferolateral and inferior hypokinesis. No significant valvular dise ase. 3. Serial EKG showed evolving inferior transmural myocardial infarction. HOSPITAL COURSE: The patient presented by private vehicle to the emergency department with new onse t substernal chest discomfort. He was found to have profound inferior ST elevation and reciprocal a nterior depression. He was taken emergently to the laboratory clerk by Dr. Ordonez. Please see Dr. Ordonez's report. Right coronary artery thrombus was treated with 2 overlapping bare metal stents. He was t ransferred to the ICU and was in stable condition there. He did have a single 7-beat run of VT on A ugust 15. Initially he had trouble tolerating Coreg due to hypotension, but he was able to tolerate low-dose metoprolol succinate. We did not start lisinopril due to his hypotension. He was then tr ansferred to the PCU on December 09. He was ambulating in the halls without any recurrent angina, dys pnea, presyncope, or symptoms suggestive of heart failure. DISCHARGE PHYSICAL EXAM: VITAL SIGNS: Blood pressure 108/72, heart rate 65, oxygen saturation 94% on room air. He is afebrile. GENERAL: Well-appearing middle-aged male in no acute distress. JVP less than 10. Regular rate and rhythm without murmur or gallop. LUNGS: Clear to auscultation with out wheezes, rhonchi, or rales. EXTREMITIES: His right femoral arteriotomy site has ecchymosis but no hematoma or bruit. No lower extremity edema. DISCHARGE LABS: White count 7, hematocrit 38.7, and platelets are 117. Sodium 137, potassium 4.2, chloride 107, bicarb 26, BUN 12, creatinine 0.9. His peak troponin was 52.9. Hemoglobin A1c and TS H are normal. Initial BNP 546. LDL cholesterol 70. Lipoprotein a is 19, which is within normal li mits and homocystine 9.5. His tox screen on the was negative for cocaine or marijuana. DISCHARGE MEDICATIONS: Please see med reconciliation. The patient will be maintained on dual antip latelet therapy for minimum of 1 year, possibly indefinitely due to his large thrombus burden. This includes aspirin and Effient. He was given instructions about obtaining free Effient card. He joanne l also be on atorvastatin 80 mg daily, Toprol-XL 12.5 mg daily, and p.r.n. nitroglycerin along with his usual dose of levothyroxine. DISCHARGE INSTRUCTIONS: 1. The patient be discharged home in stable condition. 2. Enroll in cardiac rehab. 3. Instructions are given to call 911 for recurrent chest pain. 4. He will have a CBC early next week prior to his office visit. 5. He is scheduled to see Dr. Llanes at 11:30 on 12/16. 6. We may want to consider hypercoagulable evaluation given the patient's large thrombus burden in his large right coronary artery without traditional cardiac risk factors. Greater than 30 minutes were spent in discharge and coordination of care. /[id number]/MODL
[2016-12-10 11:35] VITALS: BP 118/83; PULSE 63; RESP 18; O2SAT 95
== END 2016-12-10 12:08 | disposition home or self-care (01) | DRG 247 ==
LOC: F2N 18:07 → F2W 12-09 21:11
PROVIDERS: ADMIT Internal Medicine Cardiovascular Disease; ATTEND Internal Medicine Cardiovascular Disease
PROC: 027035Z Dilation of Coronary Artery, One Artery with Two Drug-eluting Intraluminal Devices, Percutaneous Approach (ICD-10-PCS; principal; 2016-12-07)
PROC: 02C03ZZ Extirpation of Matter from Coronary Artery, One Artery, Percutaneous Approach (ICD-10-PCS; principal; 2016-12-07)
PROC: B2151ZZ Fluoroscopy of Left Heart using Low Osmolar Contrast (ICD-10-PCS; principal; 2016-12-07)
PROC: 4A023N7 Measurement of Cardiac Sampling and Pressure, Left Heart, Percutaneous Approach (ICD-10-PCS; principal; 2016-12-07)
PROC: B2111ZZ Fluoroscopy of Multiple Coronary Arteries using Low Osmolar Contrast (ICD-10-PCS; principal; 2016-12-07)
DX: I21.19 ST elevation (STEMI) myocardial infarction involving other coronary artery of inferior wall (principal); I42.9 Cardiomyopathy, unspecified; I47.2 Ventricular tachycardia; E03.9 Hypothyroidism, unspecified; D64.9 Anemia, unspecified; D69.6 Thrombocytopenia, unspecified; E87.6 Hypokalemia
CPT/HCPCS: 80307; 82947-QW; 83695-90; 96374; C1725; C1757; C1769; C1876; C1887; C9606; G0480; J0130; J0461; J0583; J1265; J1644; J2250; J2405; J3010; J3475; Q9967

== ENCOUNTER 2016-12-21 06:34 | Emergency (ER) | payer SELFPAY ==
--- NOTE | 2016-12-21 06:48 | CPEKG ---
Heart Rate: 71 RR Interval: 845 P-R Interval: 164 QRSD Interval: 100 QT Interval: 428 QTC Interval: 466 P Tatamy: 72 QRS Tatamy: -76 T Wave Tatamy: -49 EKG Severity - ABNORMAL ECG - EKG Impression: SINUS RHYTHM EKG Impression: PROBABLE INFERIOR INFARCT, AGE INDETERMINATE Electronically Signed By: Mariana Johnston 21-Dec-2016 15:07:29
[2016-12-21 07:06] LABS: % IMMATURE GRANULYOCYTES 0.6 % (0.0-1.1); ABSOLUTE IMMATURE GRANULOCYTES 0.03 10^3/uL (0.00-0.10); ADD DIFF? NO; ADD MORPH? NO; ADD SCAN? NO; ATYPICAL LYMPHOCYTE FLAG 10 (0-99); FRAGMENT RBC FLAG 0 (0-99); HEMATOCRIT 43.9 % (40.0-51.0); HEMOGLOBIN 15.5 g/dL (13.7-17.5); LEFT SHIFT FLG 0 (0-99); LIPEMIA HEMOLYSIS FLAG 90 (0-99); MEAN CELL HEMOGLOBIN CONCENTR. 35.3 g/dL (32.4-36.7); MEAN CELL VOLUME 93.4 fL (81.5-99.8); MEAN PLATELET VOLUME 9.4 fL (8.7-11.7); PLATELET CLUMPS FLAG 0 (0-99); PLATELET COUNT 198 10^3/uL (150-400); RED CELL DISTRIBUTION WIDTH 11.9 % (11.5-15.2)
--- NOTE | 2016-12-21 07:14 | EDPHY ---
H & P Stated Complaint: tingling hands and feet after waking up, IA 2 weeks ago HPI/ROS: CHIEF COMPLAINT: Numbness in feet at night HISTORY OF PRESENT ILLNESS: This patient is an anticoagulated (Effient) 56 year old male with history of recent IA and stent placement 12/07/16 complaining of episodes of numbness and paresthesias in his feet overnight and associated tinnitus for the last two nights. He has not been able to sleep because he wakes up every hour with his feet numb and ringing in his ears. Tinnitus louder on the left than the right. Resolves along with numbness. He did not feel well yesterday, and endorses lightheadedness during the day. Last night, he slept for about an hour four times, tried walking around for 30 minutes this morning without numbness in his feet resolving. He did have a sinus infection while hospitalized following his cardiac event, which moved into chest. He endorses an occasional dry cough. He denies fever. He is currently asymptomatic here in the emergency department. Of note, he has discontinued his beta-aron and statin with the advice of his hide inspector due to side effects including low blood pressure and sleep apnea type symptoms. These resolved after discontinuing the medications. He is currently only taking Effient and aspirin. REVIEW OF SYSTEMS: A 10 point review of systems was performed and is negative with the exception of the elements mentioned in the history of present illness. - Personal History Current Tetanus/Diphtheria Vaccine: Yes Current Tetanus Diphtheria and Acellular Pertussis (TDAP): Yes - Medical/Surgical History PMH: 1. Hypothyroidism 2. AMI with stent placement x2 12/07/16 Reviewed prior medical records including admission 12/07/16 for cardiac catheterization. Hx Asthma: No Hx Chronic Respiratory Disease: No Hx Diabetes: No Hx Cardiac Disease: Yes Hx Renal Disease: No Hx Cirrhosis: No Hx Alcoholism: No Hx HIV/AIDS: No Hx Splenectomy or Spleen Trauma: No Other PMH: musculoskeletal trauma from mountain biking,hernia. hypothyroid, IA 11/2016, sents X 2 - Social History Smoking Status: Never smoked Additional Social History: Nonsmoker. He does not abuse alcohol or illicit drugs. Lives in [place]. - Physical Exam Exam: General Appearance: Alert, no distress Eyes: Pupils equal and round, no conjunctival pallor or injection ENT, Mouth: Mucous membranes moist Neck: Normal inspection Respiratory: Lungs are clear to auscultation Cardiovascular: Regular rate and rhythm Gastrointestinal: Abdomen is soft and non- tender Neurological: Alert, oriented x3, cranial nerves II through XII intact, motor 5 /5, sensory intact to light touch, normal gait Skin: Warm and dry, no rash Extremities: Nontender, no pedal edema. Pedal pulses present and strong bilaterally. Psychiatric: Mood and affect normal Constitutional: Initial Vital Signs Heart Rate 75 12/21/16 06:43 Respiratory Rate 16 12/21/16 06:43 Blood Pressure 139/91 H 12/21/16 06:43 O2 Sat (%) 99 12/21/16 06:43 O2 Delivery Mode Room Air Allergies/Adverse Reactions: erythromycin base Allergy (Intermediate, Verified 12/07/16 19:24) Vomiting Home Medications: Medication Instructions Recorded Levothyroxine [Synthroid 112 mcg 112 mcg PO DAILY06 08/06/14 (*)] Lacto Dairy Digestion Supplement 1 cap PO TIDMEAL PRN 12/08/16 Aspirin EC [Aspirin EC 325 mg (*)] 325 mg PO DAILY #90 tab 12/10/16 Nitroglycerin 0.4 mg SL Q5M PRN 30 Days 12/10/16 Prasugrel HCl [Effient 10mg (*)] 10 mg PO DAILY #30 tab 12/10/16 Medical Decision Making - Diagnostics EKG Interpretation: EKG interpreted by me reveals normal sinus rhythm, rate 71, slight ST/T segment elevation in inferior leads similar to EKG 12/09/16. Interpretation: normal EKG. ED Course/Re-evaluation: Anticoagulated 56 year old male with recent AMI and stent placement 12/07/16 presents with nightly episodes of bilateral paresthesias in his feet and associated tinnitus. Plan for EKG, labs including CBC, BMP. IV established. Labs unremarkable. EKG shows sinus rhythm, similar to post-procedure EKG on 12/09. Plan to discharge home in good condition. Query medication effect. He will follow up with his hide inspector tomorrow for further discussion of his symptoms and medication regimen. He will continue taking Effient as prescribed until followup. I recommended he pursue a sleep study as well for further evaluation of his possible sleep apnea. Return precautions discussed. The patient is comfortable with this plan. Differential Diagnosis: Includes though is not limited to neurovascular compromise, hypokalemia, hypoglycemia, medication effect. - Data Points Laboratory Results: Laboratory Results 12/21/16 06:55 12/21/16 06:55 Departure - Departure Disposition: Home, Routine, Self-Care Clinical Impression: Paresthesia of both feet Condition: Good Instructions: Paresthesia (ED) Additional Instructions: 1. Follow up with your hide inspector tomorrow to discuss your medications and further directions. Continue to take your Effient and aspirin as prescribed until you follow up with Dr. Llanes. 2. I recommend pursuing a sleep study for evaluation of your possible sleep apnea. You may try Benadryl and Melatonin as sleep aids. Both are available over the counter. 3. Return to the emergency department for chest pain, shortness of breath, fever , vomiting, or other worsening of condition. Referrals: Rosey Denney PA [Primary Care Provider] - As per Instructions Mayra Llanes MD [Medical Doctor] - As per Instructions Report Scribed for: Mariana Johnston Report Scribed by: Silvia Coppola Date of Report: 12/21/16 Time of Report: 07:13 Physician Review and Approval Statement: 12/21/16 07:13 Portions of this note were transcribed by a director medical safety. I personally performed a history, physical exam, medical decision making, and confirmed accuracy of information the transcribed note.
[2016-12-21 07:44] LABS: ANION GAP 14 mEq/L (8-16); CALCIUM 9.1 mg/dL (8.5-10.4); CARBON DIOXIDE 24 mEq/l (22-31); CHLORIDE 104 mEq/L (97-110); CREATININE 0.9 mg/dL (0.7-1.3); GLOMERULAR FILTRATION RATE > 60; GLUCOSE 119 mg/dL (70-100); SODIUM 142 mEq/L (134-144)
[2016-12-21 08:07] VITALS: BP 121/84; PULSE 65; RESP 18; TEMP 98.2; O2SAT 95
== END 2016-12-21 08:21 | disposition home or self-care (01) ==
DX: R20.2 Paresthesia of skin (principal); I25.2 Old myocardial infarction; Z79.82 Long term (current) use of aspirin